=== PATIENT | male | born 1970 | race Caucasian/White ===

== ENCOUNTER 2017-01-31 22:28 | Emergency (ER) | payer MEDICARE, OTHER ==
[~2017-01-31] VITALS: Ht 167.6 cm; Wt 59.1 kg
[~2017-01-31 22:28] MED LIST: ATEN25 PO; HYDR25TA PO; IBUP-1547 PO; TOPI200T PO
[2017-01-31 22:49] LABS: BASOPHILS % (AUTO) 1.7 % (0.0-2.0); EOSINOPHILS % (AUTO) 4.5 % (1.0-6.0); HEMATOCRIT 38.4 % (41-53); HEMOGLOBIN 12.6 g/dL (13.5-17.5); LYMPHOCYTES # (AUTO) 1.6 K/uL (1.0-4.8); LYMPHOCYTES % (AUTO) 27.4 % (22.0-44.0); MEAN CORPUSCULAR HEMOGLOBIN 34.8 pg (26.0-34.0); MEAN CORPUSCULAR HGB CONC 32.7 G/dL (31.0-37.0); MEAN CORPUSCULAR VOLUME 107 fL (80-100); MONOCYTES # (AUTO) 0.7 K/uL (0.1-1.0); MONOCYTES % (AUTO) 11.3 % (2.0-9.0); NEUTROPHILS # (AUTO) 3.2 K/uL (1.8-7.7); NEUTROPHILS % (AUTO) 55.1 % (40.0-70.0); PLATELET COUNT (AUTO) 261 K/uL (150-450); RED CELL DISTRIBUTION WIDTH 15.3 % (11.5-14.5); WHITE BLOOD COUNT (AUTO) 5.9 K/uL (4.5-11.0)
[2017-01-31 23:01] LABS: ANION GAP 15 mmol/L (8-16); CALCIUM, TOTAL 9.3 mg/dL (8.8-10.5); CARBON DIOXIDE 20 mmol/L (22-29); CHLORIDE 106 mmol/L (98-107); CREATININE 0.73 mg/dL (0.60-1.30); GLOMERULAR FILTR. RATE CALC > 60 mL/min (>60); POTASSIUM 3.7 mmol/L (3.5-5.1); SODIUM SERUM 141 mmol/L (136-145); UREA NITROGEN, BLOOD 6 mg/dL (7-18)
[2017-01-31 23:02] LABS: RBC MORPHOLOGY COMMENT ABNORMAL RBC MORPH
[2017-01-31 23:05] LABS: ALANINE AMINOTRANSFERASE 68 U/L (12-78); ALBUMIN 3.7 g/dL (3.4-5.0); ASPARTATE AMINOTRANSFERASE 179 U/L (15-37); BILIRUBIN,TOTAL 0.5 mg/dL (0.1-1.0); TOTAL PROTEIN, SERUM 8.5 g/dL (6.4-8.2)
[2017-01-31 23:23] VITALS: BP 143/75
[2017-01-31 23:26] LABS: APPEARANCE,URINE CLEAR (CLEAR); GLUCOSE, URINE (UA) NEGATIVE (NEGATIVE); KETONES,URINE NEGATIVE (NEGATIVE); LEUKOCYTE ESTERASE ,URINE NEGATIVE (NEGATIVE); OCCULT BLOOD,URINE NEGATIVE (NEGATIVE); PH,URINE 5.5 (5.0-8.0); PROTEIN,URINE NEGATIVE (NEGATIVE)
[2017-02-01 00:17] LABS: ADD UA MICROSCOPIC NO
== END 2017-01-31 23:23 | disposition home or self-care (01) ==
LOC: EMS 22:29
DX: K85.20 Alcohol induced acute pancreatitis without necrosis or infection (principal); I10 Essential (primary) hypertension; F17.210 Nicotine dependence, cigarettes, uncomplicated; Z88.8 Allergy status to other drugs, medicaments and biological substances
CPT/HCPCS: 36415; 80053; 81003; 83690; 85025; 99284; G0480

== ENCOUNTER 2021-07-01 08:22 | Inpatient (IN) | payer MEDICARE, OTHER ==
[~2021-07-01] VITALS: Ht 167.6 cm; Wt 55.3 kg
[~2021-07-01 08:22] MED LIST changes: +ATEN-73 PO; -ATEN25 PO; -IBUP-1547 PO; +IBUP-2077 PO
[2021-07-01] MEDS ORDERED: OMEP20 PO (08:26)
[2021-07-01] MEDS ORDERED: ENTE0.5T12 PO (08:26)
[2021-07-01] MEDS ORDERED: GABA-1201 PO (08:26)
[2021-07-01] MEDS ORDERED: DULO30CA89 PO (08:26)
[2021-07-01] MEDS ORDERED: DiphenhydrAMINE HCL 50 MG/ML VIAL IVP ONE ×2 (08:30→12:30)
[2021-07-01] MEDS ORDERED: MethylPREDNISolone SOD SUCC 125 MG/2 ML VIAL IVP ONE (08:30)
[2021-07-01 08:51] LABS: BASOPHILS % (AUTO) 1.1 % (0.0-2.0); EOSINOPHILS % (AUTO) 4.6 % (1.0-6.0); HEMATOCRIT 41.2 % (41-53); HEMOGLOBIN 13.5 g/dL (13.5-17.5); LYMPHOCYTES % (AUTO) 18.5 % (22.0-44.0); MEAN CORPUSCULAR HGB CONC 32.8 G/dL (31.0-37.0); MEAN CORPUSCULAR VOLUME 92 fL (80-100); MONOCYTES # (AUTO) 0.6 K/uL (0.1-1.0); MONOCYTES % (AUTO) 10.6 % (2.0-9.0); NEUTROPHILS # (AUTO) 3.6 K/uL (1.8-7.7); NEUTROPHILS % (AUTO) 65.2 % (40.0-70.0); PLATELET COUNT (AUTO) 162 K/uL (150-450)
[2021-07-01 09:00] LABS: ANION GAP 12 mmol/L (8-16); CALCIUM, TOTAL 9.5 mg/dL (8.8-10.5); CARBON DIOXIDE 24 mmol/L (22-29); CHLORIDE 102 mmol/L (98-107); CREATININE 1.17 mg/dL (0.60-1.30); GLOMERULAR FILTR. RATE CALC > 60 mL/min (>60); GLUCOSE,RANDOM 165 mg/dL (70-110); POTASSIUM 4.7 mmol/L (3.5-5.1); SODIUM SERUM 138 mmol/L (136-145); UREA NITROGEN, BLOOD 10 mg/dL (7-18)
[2021-07-01 09:05] LABS: ALANINE AMINOTRANSFERASE 28 U/L (12-78); ALBUMIN 3.8 g/dL (3.4-5.0); ALKALINE PHOSPHATASE 80 U/L (46-116); ASPARTATE AMINOTRANSFERASE 39 U/L (15-37); BILIRUBIN,TOTAL 0.8 mg/dL (0.1-1.0); TOTAL PROTEIN, SERUM 7.9 g/dL (6.4-8.2)
[2021-07-01 09:10] LABS: PROTHROMBIN TIME 10.6 SEC (9.4-11.6)
[2021-07-01 12:12] LABS: COVID AG,FIA SOURCE NASOPHARYNGEAL
[2021-07-01] MEDS ORDERED: ACETAMINOPHEN 325 MG TABLET PO PRN (13:30)
[2021-07-01] MEDS ORDERED: BISACODYL 10 MG RECTAL RECTAL SUPPOSITORY PR PRN (13:30)
[2021-07-01] MEDS ORDERED: ONDANSETRON HCL 4 MG/2 ML VIAL IVP PRN (13:30)
[2021-07-01] MEDS ORDERED: MORPHINE SULFATE 2 MG/ML SYRINGE IVP PRN (13:30)
[2021-07-01] MEDS ORDERED: MAGNESIUM HYDROXIDE SUSPENSION 30 ML UDCUP PO PRN (13:30)
[2021-07-01] MEDS ORDERED: ZOLPIDEM TARTRATE 5 MG TABLET PO PRN (13:30)
[2021-07-01] MEDS ORDERED: HYDROCODONE/ACETAMINOPHEN 5-325 MG TABLET PO PRN (13:30)
[2021-07-01] MEDS ORDERED: LACO50TA2 PO (13:42)
[2021-07-01] MEDS ORDERED: LEVE750T10 PO (13:42)
[2021-07-01] MEDS ORDERED: LISI20TA24 PO (13:42)
[2021-07-01] MEDS ORDERED: ALEN70TA80 PO (13:42)
[2021-07-01] MEDS ORDERED: LOSA50TA37 PO (13:42)
[2021-07-01] MEDS: MethylPREDNISolone SOD SUCC 40 MG/ML VIAL IVP SCH (15:39)
[2021-07-01] MEDS: HEPARIN SODIUM,PORCINE 5,000 UNITS/ML VIAL SQ SCH (15:41)
[2021-07-01] MEDS: DiphenhydrAMINE HCL 50 MG/ML VIAL IVP SCH (20:23)
[2021-07-01] MEDS: FAMOTIDINE 10 MG/ML 2 ML VIAL IVP SCH (21:06)
[2021-07-01] MEDS: DOCUSATE SODIUM 100 MG CAPSULE PO SCH (21:07)
[2021-07-02] MEDS: MethylPREDNISolone SOD SUCC 40 MG/ML VIAL IVP SCH ×4 (00:19→23:15)
[2021-07-02] MEDS: HEPARIN SODIUM,PORCINE 5,000 UNITS/ML VIAL SQ SCH ×4 (08:08→23:15)
[2021-07-02] MEDS: DOCUSATE SODIUM 100 MG CAPSULE PO SCH ×2 (08:28→20:32)
[2021-07-02] MEDS: DiphenhydrAMINE HCL 50 MG/ML VIAL IVP SCH ×2 (08:28→20:32)
[2021-07-02] MEDS: PANTOPRAZOLE SODIUM 40 MG DR TABLET PO SCH (08:28)
[2021-07-02] MEDS: FAMOTIDINE 10 MG/ML 2 ML VIAL IVP SCH ×2 (08:28→20:30)
[2021-07-02] MEDS ORDERED: GABAPENTIN 400 MG CAPSULE PO ONE (10:15)
[2021-07-02] MEDS ORDERED: SODIUM CHLORIDE 0.9% 1,000 ML IV ONE (12:00)
[2021-07-02] MEDS ORDERED: MOM30 PO (12:33)
[2021-07-02] MEDS ORDERED: CAPS42.514 TP (12:33)
[2021-07-02] MEDS ORDERED: LIDO700A15 TP (12:33)
[2021-07-02] MEDS ORDERED: CARAL PO (12:33)
[2021-07-02] MEDS ORDERED: CLOB60CR12 TP (12:33)
[2021-07-02] MEDS ORDERED: FOLI0.8C PO (12:33)
[2021-07-02] MEDS ORDERED: NIZO2SH TP (12:33)
[2021-07-02] MEDS ORDERED: OMEP-99 PO (12:33)
[2021-07-02] MEDS ORDERED: GABA-1201 PO (12:33)
[2021-07-02] MEDS ORDERED: BISA-72 PO (12:33)
[2021-07-02] MEDS ORDERED: VIT1CAPS26 PO (12:33)
[2021-07-02] MEDS ORDERED: ENTE0.5T12 PO (12:33)
[2021-07-02] MEDS ORDERED: ALEN70TA80 PO (12:33)
[2021-07-02] MEDS ORDERED: LACO50TA2 PO (12:33)
[2021-07-02] MEDS ORDERED: ALBU8.5H8 IH (12:33)
[2021-07-02] MEDS ORDERED: TOPI50TA24 PO (12:33)
[2021-07-02] MEDS ORDERED: CYAN-53 PO (12:33)
[2021-07-02] MEDS ORDERED: HYDR4CRE TP (12:33)
[2021-07-02] MEDS ORDERED: FERR15DR20 PO (12:33)
[2021-07-02] MEDS ORDERED: TIOT185 IH (12:33)
[2021-07-02] MEDS ORDERED: DULO40CA2 PO (12:33)
[2021-07-02] MEDS ORDERED: FLUT1BLS8 IH (12:33)
[2021-07-02] MEDS ORDERED: BETA50CR5 TP (12:33)
[2021-07-02] MEDS ORDERED: NA P230E PR (12:33)
[2021-07-02] MEDS ORDERED: DOCU100C34 PO (12:33)
[2021-07-02] MEDS: GABAPENTIN 400 MG CAPSULE PO SCH ×2 (16:00→20:33)
[2021-07-02 17:12] VITALS: BP 136/76
[2021-07-02 20:00] VITALS: BP 102/65
[2021-07-02] MEDS: LACOSAMIDE 50 MG TABLET PO SCH (20:35)
[2021-07-03 04:15] VITALS: BP 111/74
[2021-07-03 08:10] VITALS: BP 120/68
[2021-07-03] MEDS: GABAPENTIN 400 MG CAPSULE PO SCH (08:28)
[2021-07-03] MEDS: DOCUSATE SODIUM 100 MG CAPSULE PO SCH (08:28)
[2021-07-03] MEDS: LACOSAMIDE 50 MG TABLET PO SCH (08:28)
[2021-07-03] MEDS: MethylPREDNISolone SOD SUCC 40 MG/ML VIAL IVP SCH (08:29)
[2021-07-03] MEDS: PANTOPRAZOLE SODIUM 40 MG DR TABLET PO SCH (08:29)
[2021-07-03] MEDS: FAMOTIDINE 10 MG/ML 2 ML VIAL IVP SCH (08:29)
[2021-07-03] MEDS: HEPARIN SODIUM,PORCINE 5,000 UNITS/ML VIAL SQ SCH (08:29)
[2021-07-03] MEDS: DiphenhydrAMINE HCL 50 MG/ML VIAL IVP SCH (08:32)
[2021-07-03] MEDS ORDERED: DULoxetine HCL 30 MG CAPSULE PO SCH (09:00)
[2021-07-03] MEDS ORDERED: [UNRECOGNIZED DRUG - OTHER] PO SCH (09:00)
[2021-07-03] MEDS ORDERED: FERR-89 PO (10:55)
[2021-07-03] MEDS ORDERED: FAMO20 PO (14:08)
[2021-07-03] MEDS ORDERED: PRED20 PO (14:08)
== END 2021-07-03 15:15 | disposition home or self-care (01) | DRG 916 ==
LOC: EMS 08:24 → 6N 07-02 16:28
PROVIDERS: ADMIT Internal Medicine; ATTEND Internal Medicine
DX: T78.3XXA Angioneurotic edema, initial encounter (principal); E44.0 Moderate protein-calorie malnutrition; B19.10 Unspecified viral hepatitis B without hepatic coma; Z68.1 Body mass index [BMI] 19.9 or less, adult; F10.10 Alcohol abuse, uncomplicated; Y90.9 Presence of alcohol in blood, level not specified; I10 Essential (primary) hypertension; Z20.822 Contact with and (suspected) exposure to COVID-19; G40.909 Epilepsy, unspecified, not intractable, without status epilepticus; Z88.8 Allergy status to other drugs, medicaments and biological substances; Z87.891 Personal history of nicotine dependence
CPT/HCPCS: 80053; 84443; 85025; 85610; 99291; J1200; J1644; J2920; J3490; J7030; Q9967